=== PATIENT | female | born 1970 | race Caucasian/White ===

== ENCOUNTER 2019-03-09 09:47 | Day surgery (SDC) | payer OTHER ==
--- NOTE | 2019-03-05 15:51 | HP ---
Admitting History and Physical - Primary Care Physician PCP: Heber Burgess - Admission Chief Complaint: Left breast abscess History of Present Illness: 49 year old [place] female with H/O bilateral mastitis and right breast treated [address] sarabia and then developed new left breast mastitis and small abscess and was admitted [facility] and had US core showing imflamation and few + cocci gram +. This eventually resolved and now she has right lower quadrant mass and tenderness and was placed on augmentin for these recurrent chronic periareolar abscesses. History Source: Patient Limitations to Obtaining History: No Limitations - Past Medical History Pulmonary: Yes: Asthma ...LMP Comment: 2012 - Past Surgical History Past Surgical History: Yes: Hysterectomy (NORA 2010 bleeding), Tubal Ligation - Smoking History Smoking history: Never smoked Have you smoked in the past 12 months: No - Alcohol/Substance Use Hx Alcohol Use: No Home Medications - Allergies Allergies/Adverse Reactions: Allergies Allergy/AdvReac Type Severity Reaction Status Date / Time No Known Allergies Allergy Verified 03/04/19 09:58 - Home Medications Home Medications: Ambulatory Orders Albuterol Sulfate Inhaler - [Ventolin Hfa Inhaler -] 1 - 2 inh PO QID PRN Family Disease History - Family Disease History Family Disease History: Other: Mother (Breast cancer), Daughter (Thyroid cancer) Physical Examination Constitutional: Yes: Well Nourished Breast(s): Yes: Other (Left breast acute periareolar infection of chronic nature diffusely nodular bilaterally and dense no suspicious masses or adenopathy) Problem List - Problems (1) Abscess of left breast Code(s): N61.1 - ABSCESS OF THE BREAST AND NIPPLE Assessment/Plan Left breast major duct excision
[2019-03-09 10:33] VITALS: BMI 33.6
[2019-03-09] MEDS ORDERED: ONDANSETRON 4 MG/2 ML VIAL IVPUSH PRN (14:01)
[2019-03-09] MEDS ORDERED: KETOROLAC TROMETHAMINE 30 MG/1 ML VIAL IVPUSH PRN (14:01)
[2019-03-09] MEDS ORDERED: GUM MASTIC/STORAX/MSAL/ALCOHOL 1 DRP DROPSBTL MC ONE (14:12)
[2019-03-09] MEDS ORDERED: LIDOCAINE HCL 1% PRESERVATIVE FREE - 30ML VIAL ONE (14:12)
[2019-03-09] MEDS ORDERED: BUPIVACAINE HCL 0.25% 125 MG/50 ML VIAL ONE (14:12)
[2019-03-09] MEDS ORDERED: DEXTROSE 5%-0.45% SALINE 1,000 ML IV SCH (14:15)
[2019-03-09] MEDS ORDERED: PROPOFOL 20 ML ONE (14:17)
[2019-03-09] MEDS ORDERED: MIDAZOLAM HCL 2 MG/2 ML SINGLE DOSE VIAL ONE (14:17)
[2019-03-09] MEDS ORDERED: CLINDAMYCIN PHOSPHATE 600 MG/4 ML VIAL ONE (14:37)
[2019-03-09] MEDS ORDERED: ONDANSETRON 4 MG/2 ML VIAL ONE (14:37)
[2019-03-09] MEDS ORDERED: DEXAMETHASONE SOD PHOSPHATE 4 MG/1 ML VIAL ONE (14:37)
[2019-03-09] MEDS ORDERED: KETOROLAC TROMETHAMINE 30 MG/1 ML VIAL ONE (15:27)
[2019-03-09] MEDS ORDERED: oxyCODONE HCL 5 MG TABLET PO PRN ×2 (15:43)
[2019-03-09] MEDS ORDERED: LACTATED RINGERS SOLUTION 1,000 ML IV SCH (15:45)
[2019-03-09 16:17] VITALS: TEMP 97.7
[2019-03-09 16:56] VITALS: BP 110/70; PULSE 68
--- NOTE | 2019-03-12 10:56 | OP ---
DATE OF OPERATION: 03/09/2019 PREOPERATIVE DIAGNOSIS: Recurrent left breast periareolar infections. POSTOPERATIVE DIAGNOSIS: Recurrent left breast periareolar infections. PROCEDURE: Left breast radial major duct excision. ANESTHESIA: General intubation. ATTENDING SURGEON: Vidya Burgess MD EDUCATION COUNSELOR: JENSEN Moses ESTIMATED BLOOD LOSS: Minimal. COMPLICATIONS: None. DESCRIPTION OF PROCEDURE: Patient was made aware of the risks and benefits of the procedure and consented. She was placed in the supine position. After general anesthesia was induced, the patient was intubated. The operative site was prepped and draped in the usual sterile fashion. An elliptical radial incision was made encompassing the prior sinus tract extending to the nipple duct. This was sharply dissected down to soft fibrofatty tissue making sure to encompass all the ducts and scar tissue with inflammation. This was submitted for permanent sectioning. The wound was copiously irrigated with normal saline. Hemostasis was maintained by electrocautery. The wound was then closed with interrupted 3-0 Vicryl and a few 3-0 nylon. Sterile dressing as well as a compressive device was then applied, and the patient, having tolerated the procedure well, was transferred to the recovery room in excellent condition. VIDYA BURGESS M.D. [id number]
--- NOTE | 2019-03-12 15:55 | PATH ---
Surgical Pathology Report Patient Name: SAMIR COTA [facility]. Rec. #: [id number] /Age/Gender: 1970 (Age: 49) / F Account: [id number] Location: [facility] AMBULATORY Taken: 03/09/2019 Received: 03/09/2019 Reported: 03/12/2019 Physicians: Heber Burgess M.D. Specimen(s) Received LEFT BREAST RADIAL DUCT EXCISION Clinical History Recurrent left periareolar infection Final Diagnosis BREAST, LEFT, RADIAL DUCT, EXCISION: SKIN AND AREOLAR BREAST TISSUE SHOWING MARKED ACUTE AND CHRONIC INFLAMMATION. Electronically Signed Jasmine Segura M.D. Gross Description Received in formalin labeled "left breast radial duct excision," are 3 lopez-yellow, unoriented portions of fibroadipose tissue ranging from 1.1 x 0.6 x 0.5 cm to 2.0 x 1.8 x 1.0 cm. The largest portion is surfaced by a 2.0 x 0.3 cm lopez-brown, elliptical, unremarkable portion of skin. There is a needle localization wire is present. Sectioning reveals foci of white fibrous tissue. No definitive mass is identified. The specimen is entirely submitted in 5 cassettes as follows: 1-smallest portion of tissue; 2-medium portion of tissue; 3-5-largest portion of tissue sequentially submitted from skin to deep. Total formalin fixation time: Approximately 24 hours 03/10/201903/10/2019
== END 2019-03-09 17:00 | disposition home or self-care (01) ==
LOC: FASU 09:47
PROVIDERS: ATTEND Surgery Surgical Oncology
PROC: 0HBU0ZX Excision of Left Breast, Open Approach, Diagnostic (ICD-10-PCS; principal; 2019-03-09 11:30)
DX: N61.1 Abscess of the breast and nipple (principal); Z80.3 Family history of malignant neoplasm of breast; Z90.710 Acquired absence of both cervix and uterus
CPT/HCPCS: 88305-TC; 94760

== ENCOUNTER 2019-10-28 10:34 | Emergency (ER) | payer OTHER ==
[2019-10-28 10:46] VITALS: BP 154/71; PULSE 81; TEMP 97.8; BMI 32.8
[2019-10-28] MEDS ORDERED: IBUPROFEN 600 MG TABLET (FP) PO ONE (11:38)
--- NOTE | 2019-10-28 11:38 | PDOC ---
History of Present Illness - General Chief Complaint: Injury Stated Complaint: SWOLLEN RT HAND Time Seen by Provider: 10/28/19 11:33 History Source: Patient - History of Present Illness Initial Comments: 10/28/19 13:24 Chief complaint: Wrist injury Patient 49-year-old female with history of mild asthma who states she was at work yesterday, lifting a box, injured right wrist. Painful today. She went to work but was unable to work due to the pain. Patient took Advil yesterday. Did not take anything today GENERAL/CONSTITUTIONAL: No fever, weakness. dizziness HEAD, EYES, EARS, NOSE AND THROAT: No change in vision. No ear pain or discharge. No sore throat. CARDIOVASCULAR: No chest pain RESPIRATORY: No shortness of breath or cough GASTROINTESTINAL: No pain, nausea, vomiting, diarrhea or constipation GENITOURINARY: No dysuria MUSCULOSKELETAL: No neck or back pain SKIN: No rash NEUROLOGIC: No headache, vertigo, loss of consciousness, or loss of sensation. GENERAL: The patient is awake, alert, and fully oriented, in no acute distress. HEAD: Normal with no signs of trauma. EYES: Pupils equal, round and reactive to light, sclera anicteric, conjunctiva clear. ENT: pharynx: no erythema, no exudate, uvula midline NECK: supple CHEST: clear, nontender, rr ABD: soft, nontender BACK: no tenderness or signs of injury EXTREMITIES: Right wrist with mild tenderness on the ulnar side, no deformity, good range of motion, neurovascular intact. Rest of extremities, normal range of motion, no edema. NEUROLOGICAL: Normal speech, normal gait. SKIN: Warm, Dry Past History - Past Medical History Allergies/Adverse Reactions: Allergies Allergy/AdvReac Type Severity Reaction Status Date / Time No Known Allergies Allergy Verified 10/28/19 10:43 Anemia: No Asthma: Yes Cancer: No Cardiac Disorders: No CVA: No COPD: No CHF: No Dementia: No Diabetes: No GI Disorders: No Disorders: No HTN: No Hypercholesterolemia: No Liver Disease: No Seizures: No Thyroid Disease: No - Surgical History Abdominal Surgery: No Appendectomy: No Cardiac Surgery: No Cholecystectomy: No Lung Surgery: No Neurologic Surgery: No Orthopedic Surgery: No - Psycho Social/Smoking Cessation Hx Smoking History: Never smoked Have you smoked in the past 12 months: No Hx Alcohol Use: No Drug/Substance Use Hx: No Substance Use Type: None Hx Substance Use Treatment: No *Physical Exam - Vital Signs Last Vital Signs Temp Pulse Resp BP Pulse Ox 97.8 F 81 15 154/71 99 10/28/19 10:45 10/28/19 10:45 10/28/19 10:45 10/28/19 10:45 10/28/19 10:45 Procedures - Splinting Splint Location: Right: Wrist Pre-Proc Neuro Vasc Exam: normal Pre-Made Type: velcro Post-Proc Neuro Vasc Exam: normal Medical Decision Making - Medical Decision Making 10/28/19 13:27 49-year-old female with remote history of asthma with injury to right wrist yesterday at work, no deformity. Likely sprain versus tendon/ligament injury although patient has good range of motion and neurovascular is intact. Will get x-ray. Patient will need splinting and Ortho follow-up X-rays negative Discussed issues, findings, results, applicable medications and treatments and follow-up. All these were understood and all questions were answered Discharge - Discharge Information Problems reviewed: Yes Clinical Impression/Diagnosis: Right wrist injury Qualifiers: Encounter type: initial encounter Qualified Code(s): S69.91XA - Unspecified injury of right wrist, hand and finger(s), initial encounter Condition: Stable Disposition: HOME - Admission No - Follow up/Referral Referrals: Geovany Bettencourt MD [Primary Care Provider] - Douglas Villanueva MD [Staff Physician] - - Patient Discharge Instructions Patient Printed Discharge Instructions: DI for Wrist Pain Additional Instructions: Elevate, wear splint You can apply ice for 20 minutes every 2 hours for the next 2 days Motrin 400 mg every 6 hours for pain. Call the orthopedist tomorrow - Post Discharge Activity Work/Back to School Note: Back to Work
== END 2019-10-28 12:22 | disposition home or self-care (01) ==
LOC: JERFT 10:34
PROC: 2W3CX1Z Immobilization of Right Lower Arm using Splint (ICD-10-PCS; principal; 2019-10-28)
DX: S69.81XA Other specified injuries of right wrist, hand and finger(s), initial encounter (principal); X50.0XXA Overexertion from strenuous movement or load, initial encounter; Y93.89 Activity, other specified; Y92.512 Supermarket, store or market as the place of occurrence of the external cause; Y99.0 Civilian activity done for income or pay
CPT/HCPCS: 73110-TC-RT-FY; 73130-TC-RT-FY; 99283-25

== ENCOUNTER 2023-07-09 11:38 | Inpatient (IN) | payer OTHER ==
[2023-07-09] MEDS ORDERED: ONDANSETRON 4 MG/2 ML VIAL IVPUSH ONE (12:16)
[2023-07-09] MEDS ORDERED: LACTATED RINGERS SOLUTION 1,000 ML/1,000 ML INFUS.BAG IV STA ×2 (12:16→13:27)
[2023-07-09] MEDS ORDERED: morphine CARPU-JECT 4 MG/1 ML DISP.SYRIN IVPUSH ONE (12:16)
[2023-07-09] MEDS ORDERED: morphine SULFATE 4 MG/ML VIAL ONE (12:23)
[2023-07-09] MEDS ORDERED: ONDANSETRON 4 MG/2 ML VIAL ONE (12:23)
[2023-07-09 13:05] LABS: HEMATOCRIT 40.7 % (32.4-45.2); HEMOGLOBIN 13.4 GM/dL (10.7-15.3); MCH 25.3 pg (25.7-33.7); MEAN CELL VOLUME 76.6 fl (80-96); MEAN PLT VOLUME 7.7 fl (7.5-11.1); PLATELET COUNT 315 10^3/uL (134-434); RBC 5.32 M/mm3 (3.60-5.2); RDW 14.3 % (11.6-15.6)
[2023-07-09 13:12] LABS: INR 1.17 (0.83-1.09); PROTHROMBIN TIME (PATIENT) 13.5 SEC (9.7-13.0)
[2023-07-09] MEDS ORDERED: PIPERACILLIN/TAZOB 3.375 GM 3.375 GM in DEXTROSE 5%-WATER - 50 ML IVPB ONE (13:28)
[2023-07-09 13:32] LABS: POTASSIUM 3.6 mmol/L (3.5-5.1)
[2023-07-09 13:34] LABS: ALBUMIN 3.8 g/dl (3.4-5.0); BLOOD UREA NITROGEN 8.5 mg/dL (7-18); CALCIUM 9.1 mg/dL (8.5-10.1)
[2023-07-09] MEDS ORDERED: PIPERACILLIN/TAZOB 3.375 GM 3.375 GM/50 ML BAG IVPB ONE (13:34)
[2023-07-09 13:37] LABS: CREATININE 0.6 mg/dL (0.55-1.3)
[2023-07-09 13:39] LABS: BILIRUBIN,TOTAL 0.8 mg/dL (0.2-1); TOT PROT 7.3 g/dl (6.4-8.2)
[2023-07-09 13:42] LABS: URINE APPEARANCE CLEAR; URINE BILIRUBIN NEGATIVE (NEGATIVE); URINE COLOR YELLOW; URINE GLUCOSE (UA) NEGATIVE (NEGATIVE); URINE KETONE NEGATIVE (NEGATIVE); URINE LEUK ESTERASE NEGATIVE (NEGATIVE); URINE NITRITE NEGATIVE (NEGATIVE); URINE PROTEIN NEGATIVE (NEGATIVE); URINE UROBILINOGEN 0.2 mg/dL (0.2-1.0)
[2023-07-09 13:52] LABS: ANISOCYTOSIS 2+
[2023-07-09] MEDS ORDERED: morphine SULFATE 4 MG/ML VIAL IVPUSH PRN (15:44)
[2023-07-09] MEDS: DEXTROSE 5%-NORMAL SALINE 1,000 ML IV SCH (16:44)
[2023-07-09] MEDS: ACETAMINOPHEN 1000 MG/100 ML BAG IVPB PRN (17:58)
[2023-07-09] MEDS: PIPERACILLIN/TAZOB 3.375 GM 3.375 GM in DEXTROSE 5%-WATER - 50 ML IVPB SCH (21:38)
[2023-07-09] MEDS: MUPIROCIN 2% TOPICAL OINTMENT FOR DECOLONIZATION NS SCH (21:47)
[2023-07-09] MEDS: CHLORHEXIDINE GLUCONATE 4% CLEANSER FOR DECOLONIZATION TP SCH (21:48)
[2023-07-10] MEDS: PIPERACILLIN/TAZOB 3.375 GM 3.375 GM in DEXTROSE 5%-WATER - 50 ML IVPB SCH ×3 (01:58→17:48)
[2023-07-10] MEDS: ACETAMINOPHEN 1000 MG/100 ML BAG IVPB PRN (04:45)
[2023-07-10] MEDS: DEXTROSE 5%-NORMAL SALINE 1,000 ML IV SCH ×3 (05:17→21:49)
[2023-07-10 07:26] LABS: HEMATOCRIT 33.9 % (32.4-45.2); HEMOGLOBIN 11.1 GM/dL (10.7-15.3); MCH 25.5 pg (25.7-33.7); MCHC 32.8 g/dl (32.0-36.0); MEAN CELL VOLUME 77.8 fl (80-96); PLATELET COUNT 263 10^3/uL (134-434); RBC 4.36 M/mm3 (3.60-5.2); RDW 14.1 % (11.6-15.6); WHITE BLOOD COUNT 9.6 K/mm3 (4.0-10.0)
[2023-07-10 07:32] LABS: POTASSIUM 3.3 mmol/L (3.5-5.1)
[2023-07-10 07:36] LABS: BLOOD UREA NITROGEN 5.7 mg/dL (7-18); CALCIUM 8.1 mg/dL (8.5-10.1)
[2023-07-10 07:39] LABS: CREATININE 0.5 mg/dL (0.55-1.3); PHOSPHOROUS 2.6 mg/dL (2.5-4.9)
[2023-07-10 07:41] LABS: TOT PROT 5.7 g/dl (6.4-8.2)
[2023-07-10 07:45] LABS: ALBUMIN 2.8 g/dl (3.4-5.0)
[2023-07-10] MEDS: KCL 10 MEQ IVPB 10 MEQ/100 ML INFUS.BAG IVPB SCH ×3 (08:57→13:44)
[2023-07-10] MEDS: PANTOPRAZOLE SODIUM 40 MG VIAL IVPUSH SCH (10:35)
[2023-07-10] MEDS ORDERED: ONDANSETRON 4 MG/2 ML VIAL IVPUSH PRN (11:43)
[2023-07-10] MEDS ORDERED: DEXTROSE 50%-WATER - 25 GM/50 ML VIAL IVPUSH PRN (11:50)
[2023-07-10] MEDS: MUPIROCIN 2% TOPICAL OINTMENT FOR DECOLONIZATION NS SCH ×2 (13:44→21:42)
[2023-07-10 14:48] VITALS: BMI 31.5
[2023-07-10] MEDS ORDERED: ACETAMINOPHEN 1000 MG/100 ML BAG IVPB PRN (17:49)
[2023-07-10] MEDS: CHLORHEXIDINE GLUCONATE 4% CLEANSER FOR DECOLONIZATION TP SCH (21:42)
[2023-07-11] MEDS: PIPERACILLIN/TAZOB 3.375 GM 3.375 GM in DEXTROSE 5%-WATER - 50 ML IVPB SCH ×3 (02:44→17:46)
[2023-07-11 07:18] LABS: BASO % 0.4 % (0-2.0); EOS % 2.2 % (0-4.5); HEMATOCRIT 34.9 % (32.4-45.2); HEMOGLOBIN 11.3 GM/dL (10.7-15.3); LYMPH % 13.7 % (8-40); MCH 24.9 pg (25.7-33.7); MCHC 32.3 g/dl (32.0-36.0); MEAN CELL VOLUME 77.2 fl (80-96); MEAN PLT VOLUME 7.9 fl (7.5-11.1); MONO % 8.1 % (3.8-10.2); NEUT % 75.6 % (42.8-82.8); PLATELET COUNT 287 10^3/uL (134-434); RBC 4.52 M/mm3 (3.60-5.2); WHITE BLOOD COUNT 8.9 K/mm3 (4.0-10.0)
[2023-07-11 07:46] LABS: POTASSIUM 3.5 mmol/L (3.5-5.1)
[2023-07-11 07:48] LABS: CALCIUM 8.1 mg/dL (8.5-10.1)
[2023-07-11 07:49] LABS: ALBUMIN 2.7 g/dl (3.4-5.0); BLOOD UREA NITROGEN 3.4 mg/dL (7-18)
[2023-07-11 07:52] LABS: CREATININE 0.3 mg/dL (0.55-1.3); PHOSPHOROUS 2.8 mg/dL (2.5-4.9)
[2023-07-11 07:54] LABS: BILIRUBIN,TOTAL 0.6 mg/dL (0.2-1)
[2023-07-11] MEDS: MUPIROCIN 2% TOPICAL OINTMENT FOR DECOLONIZATION NS SCH ×2 (09:33→22:33)
[2023-07-11] MEDS: PANTOPRAZOLE SODIUM 40 MG VIAL IVPUSH SCH (09:33)
[2023-07-11] MEDS: DEXTROSE 5%-NORMAL SALINE 1,000 ML IV SCH (17:46)
[2023-07-11] MEDS: CHLORHEXIDINE GLUCONATE 4% CLEANSER FOR DECOLONIZATION TP SCH (22:34)
[2023-07-12] MEDS: PIPERACILLIN/TAZOB 3.375 GM 3.375 GM in DEXTROSE 5%-WATER - 50 ML IVPB SCH ×3 (01:39→17:12)
[2023-07-12 06:36] LABS: HEMATOCRIT 37.1 % (32.4-45.2); HEMOGLOBIN 12.1 GM/dL (10.7-15.3); MCH 25.4 pg (25.7-33.7); MCHC 32.6 g/dl (32.0-36.0); MEAN CELL VOLUME 77.8 fl (80-96); MEAN PLT VOLUME 7.7 fl (7.5-11.1); PLATELET COUNT 331 10^3/uL (134-434); RBC 4.76 M/mm3 (3.60-5.2); RDW 14.4 % (11.6-15.6); WHITE BLOOD COUNT 6.7 K/mm3 (4.0-10.0)
[2023-07-12 07:00] LABS: POTASSIUM 3.5 mmol/L (3.5-5.1)
[2023-07-12] MEDS ORDERED: ACETAMINOPHEN 1000 MG/100 ML BAG IVPB PRN (07:11)
[2023-07-12 07:15] LABS: CALCIUM 8.5 mg/dL (8.5-10.1)
[2023-07-12 07:18] LABS: BLOOD UREA NITROGEN 4.1 mg/dL (7-18)
[2023-07-12 07:20] LABS: BILIRUBIN,TOTAL 0.4 mg/dL (0.2-1)
[2023-07-12 07:21] LABS: CREATININE 0.4 mg/dL (0.55-1.3)
[2023-07-12 07:23] LABS: TOT PROT 6.3 g/dl (6.4-8.2)
[2023-07-12] MEDS: PANTOPRAZOLE SODIUM 40 MG VIAL IVPUSH SCH (09:21)
[2023-07-12] MEDS: MUPIROCIN 2% TOPICAL OINTMENT FOR DECOLONIZATION NS SCH ×2 (09:34→21:50)
[2023-07-12] MEDS: CHLORHEXIDINE GLUCONATE 4% CLEANSER FOR DECOLONIZATION TP SCH (21:50)
[2023-07-13] MEDS: PIPERACILLIN/TAZOB 3.375 GM 3.375 GM in DEXTROSE 5%-WATER - 50 ML IVPB SCH (01:35)
[2023-07-13] MEDS ORDERED: AMOX TR/POT CLAV 875MG/125MG TABLETS (FP) PO SCH (09:30)
[2023-07-13] MEDS ORDERED: ACETAMINOPHEN 325 MG TABLET (FP) PO PRN (09:31)
[2023-07-13] MEDS: MUPIROCIN 2% TOPICAL OINTMENT FOR DECOLONIZATION NS SCH (11:28)
[2023-07-13 13:43] VITALS: BP 116/68; PULSE 74; TEMP 97.8
[2023-07-13 13:45] VITALS: RESP 16
== END 2023-07-13 12:50 | disposition home or self-care (01) | DRG 244 ==
LOC: JER 11:38 → JERBED 15:55 → JICU 17:12
PROVIDERS: ADMIT Family Medicine; ATTEND Family Medicine
DX: K57.20 Diverticulitis of large intestine with perforation and abscess without bleeding (principal); E78.5 Hyperlipidemia, unspecified; J45.909 Unspecified asthma, uncomplicated; E11.9 Type 2 diabetes mellitus without complications; E87.6 Hypokalemia; I95.9 Hypotension, unspecified; K76.0 Fatty (change of) liver, not elsewhere classified
CPT/HCPCS: 36415; 71045-TC-FY; 74177-TC; 80053; 81003; 82962; 83605; 83690; 83735; 84100; 84703; 85025; 85027; 85610; 86850; 86900; 86901; 87040; 87086; 87635; 93005; 93010; 94010; 99291; Q9967